=== PATIENT | male | born 1995 | race African-American/Black ===

== ENCOUNTER 2017-08-23 12:14 | Emergency (ER) | payer SELFPAY ==
[2017-08-23 12:43] LABS: ADD MAN DIFF? NO
[2017-08-23 12:46] LABS: BASO # 0.1 x10^3/uL (0.0-0.2); BASO % 1 % (0-3); EOS # 0.2 x10^3/uL (0.0-0.7); EOS % 2 % (0-3); HEMATOCRIT 42.5 % (39.0-53.0); HEMOGLOBIN 14.6 g/dL (13.0-17.5); LYMPH % 31 % (24-48); MEAN CORPUSCULAR HEMOGLOBIN 31 pg (25-35); MEAN CORPUSCULAR HGB CONC 34 g/dL (31-37); MEAN CORPUSCULAR VOLUME 91 fL (79-100); MONO # 0.8 x10^3/uL (0.0-1.1); MONO % 12 % (0-9); NEUT # 3.5 x10^3uL (1.8-7.7); NEUT % 54 % (31-73); PLATELET COUNT 183 x10^3/uL (140-400); RED BLOOD COUNT 4.66 x10^6/uL (4.30-5.70); RED CELL DISTRIBUTION WIDTH 13.8 % (11.5-14.5); WHITE BLOOD COUNT 6.5 x10^3/uL (4.0-11.0)
[2017-08-23] MEDS: FAMOTIDINE 20 MG TABLET. PO (12:48)
[2017-08-23] MEDS: SUCRALFATE 1 GM TABLET. PO (12:48)
[2017-08-23 12:53] LABS: ANION GAP 8 (6-14); BLOOD UREA NITROGEN 7 mg/dL (8-26); BUN/CREATININE RATIO 6 (6-20); CALCIUM 8.8 mg/dL (8.5-10.1); CARBON DIOXIDE 29 mmol/L (21-32); CHLORIDE 105 mmol/L (98-107); CREATININE 1.1 mg/dL (0.7-1.3); GFR 82.2; GLUCOSE 88 mg/dL (70-99); POTASSIUM 3.6 mmol/L (3.5-5.1); SODIUM 142 mmol/L (136-145)
[2017-08-23 13:00] LABS: ALBUMIN 3.8 g/dL (3.4-5.0); ALK PHOS 66 U/L (46-116); ALT (SGPT) 23 U/L (16-63); AST (SGOT) 18 U/L (15-37); LIPASE 80 U/L (73-393); TOTAL BILIRUBIN 0.4 mg/dL (0.2-1.0); TOTAL PROTEIN 7.5 g/dL (6.4-8.2)
[2017-08-23 13:10] LABS: BILIRUBIN,URINE NEGATIVE (NEG); CLARITY,URINE CLEAR; COLOR,URINE YELLOW; GLUCOSE,URINE NEGATIVE (NEG); NITRITE,URINE NEGATIVE (NEG); PROTEIN,URINE NEGATIVE (NEG-TRACE)
[2017-08-23 13:14] LABS: SQUAMOUS EPITHELIAL CELL,UR OCC /LPF
[2017-08-23 13:15] LABS: BACTERIA,URINE FEW /HPF (0-FEW); RBC,URINE 0 /HPF (0-2); SPERM,URINE PRESENT /HPF
[2017-08-23] MEDS: AZITHROMYCIN 250 MG TABLET. PO (13:43)
[2017-08-23] MEDS: cefTRIAXone IM 250 MG VIAL IM (13:44)
== END 2017-08-23 13:49 | disposition home or self-care (01) ==
LOC: ER 12:14
DX: K29.00 Acute gastritis without bleeding (principal); F17.210 Nicotine dependence, cigarettes, uncomplicated; Z20.2 Contact with and (suspected) exposure to infections with a predominantly sexual mode of transmission
CPT/HCPCS: 36415; 80053; 81001; 83690; 85025; 87086; 87491; 87591; 96372; 99284-25; J0696; Q0144